=== PATIENT | female | born 1945 | race Native Hawaiian/Other Pacific Islander ===

== ENCOUNTER 2017-02-17 08:30 | Day surgery (SDC) | payer MEDICAID ==
[2017-02-17 08:56] VITALS: RESP 18; TEMP 97.7; O2SAT 97
--- NOTE | 2017-02-17 09:58 | CP.SDSHP ---
Same Day Surgery H & P - History Proposed Procedure: Thyroid FNA Pre-Op Diagnosis: Right thyroid nodule - Allergies Allergies: Allergies No Known Allergies Allergy (Unverified 08/06/13 10:52) - Physical Exam Vital Signs: Vital Signs 02/17/17 08:47 Temperature 97.7 F Pulse Rate 67 Respiratory 18 Rate Blood Pressure 120/69 O2 Sat by Pulse 97 Oximetry Mental Status: Alert & Oriented x3 Heart: WNL Lungs: WNL GI: WNL - {Optional Preform as Required} Abdomen: WNL - Impression Pt. Evaluated Today:Candidate for Anesthesia & Procedure: Yes - Date & Time Date: 02/17/17 Time: 09:45 Short Stay Discharge - Short Stay Discharge Admitting Diagnosis/Reason for Visit: THYROID NODULE Disposition: HOME/ ROUTINE
--- NOTE | 2017-02-17 10:00 | PCM.SURG1 ---
Surgeon's Initial Post Op Note - Surgeon's Notes Surgeon: Meg Motor Power Connector: None Type of Anesthesia: Local Pre-Operative Diagnosis: Right thyroid nodule Operative Findings: Right thyroid nodule Post-Operative Diagnosis: Right thyroid nodule Operation Performed: Right thyroid nodule FNA Specimen/Specimens Removed: FNA samples Estimated Blood Loss: EBL {In ML}: 1 Blood Products Given: N/A Drains Used: No Drains Post-Op Condition: Good Date of Surgery/Procedure: 02/17/17 Time of Surgery/Procedure: 09:55
[2017-02-17 13:23] VITALS: BP 122/71; PULSE 69
--- NOTE | 2017-02-18 17:24 | US ---
PROCEDURE: Ultrasound-guided right thyroid lobe fine needle aspiration biopsy. Clinical Indication: Right lobe thyroid nodule. Evaluate for malignancy. COMPARISON: Comparison is made to prior ultrasound of the thyroid gland performed at an outside institution. PROCEDURE: The relative risks and indications for the procedure were explained to the patient and consent obtained. The patient was placed supine on the stretcher with the neck extended and preliminary sonography of the thyroid performed. This reveal a mildly heterogeneous nodule mid/medial aspect of the right thyroid lobe. Surrounding calcifications noted. The neck was prepped and draped in the usual sterile fashion. Three passes with a 25-gauge needle were performed under ultrasound guidance for fine needle aspiration of the heterogeneous nodule in the right thyroid lobe. The slides were reviewed by pathology and deemed adequate. The patient tolerated the procedure well. IMPRESSION: Ultrasound-guided fine needle aspiration biopsy of right thyroid lobe nodule as described above.
== END 2017-02-17 10:50 | disposition home or self-care (01) ==
LOC: C.SPRAD 08:30
PROVIDERS: ATTEND Radiology Vascular & Interventional Radiology
DX: E04.2 Nontoxic multinodular goiter (principal)

== ENCOUNTER 2017-04-11 09:48 | Day surgery (SDC) | payer MEDICAID ==
[2017-04-07 07:31] VITALS: BMI 23.0
[2017-04-11 10:44] VITALS: O2SAT 97
--- NOTE | 2017-04-11 11:55 | CP.SDSHP ---
Same Day Surgery H & P - History Proposed Procedure: US guided FNA of right thyroid nodule Pre-Op Diagnosis: US guided FNA of right thyroid nodule - Allergies Allergies: Allergies No Known Allergies Allergy (Unverified 08/06/13 10:52) - Physical Exam Vital Signs: Vital Signs 04/11/17 10:09 Temperature 97.5 F L Pulse Rate 63 Respiratory 20 Rate Blood Pressure 138/81 O2 Sat by Pulse 97 Oximetry - Impression Impression: Pt with a calcified right thyroid nodule referred for FNA. Pt. Evaluated Today:Candidate for Anesthesia & Procedure: No Short Stay Discharge - Short Stay Discharge Admitting Diagnosis/Reason for Visit: NONTOXIC SINGLE THYROID NODULE Disposition: HOME/ ROUTINE
--- NOTE | 2017-04-11 11:57 | PCM.SURG1 ---
Surgeon's Initial Post Op Note - Surgeon's Notes Surgeon: Tad Telles MD Cable Technician: NONE Type of Anesthesia: Local Pre-Operative Diagnosis: Right thyroid nodule Operative Findings: US showed a calcified right thyroid 2 cm nodule Post-Operative Diagnosis: Right thyroid nodule Operation Performed: US guided FNA. It was difficult to penetrate the nodule with a 25 g needle because of wall peripheral coarse calcification. Specimen/Specimens Removed: 25 g FNA Estimated Blood Loss: EBL {In ML}: 1 Blood Products Given: N/A Drains Used: No Drains Post-Op Condition: Good Date of Surgery/Procedure: 04/11/17 Time of Surgery/Procedure: 11:50
[2017-04-11 12:36] VITALS: BP 144/64; PULSE 65; RESP 18; TEMP 97.6
--- NOTE | 2017-04-11 13:22 | US ---
PROCEDURE: Date of Procedure: 04/11/2017 PROCEDURE: 1. Ultrasound guided FNA of right thyroid nodule, CPT 35074 2. Ultrasound guidance for FNA, 28957 Medications: 3cc 1% Lidocaine HISTORY: Enlarged right thyroid nodule. TECHNIQUE: Following informed consent and procedure time-out, a limited ultrasound patient's neck confirmed the presence of a 2.3 cm x 1.9 cm complex right thyroid nodule which is predominantly solid and has peripheral calcifications. After the patient's neck was prepped and draped in the usual sterile fashion, the skin was anesthetized with 1% lidocaine. Ultrasound-guided fine needle aspiration was then performed of the dominant right thyroid nodule. A total of 4 passes were made into the nodule with 25 gauge needle under ultrasound guidance. The FNA specimen was sent for routine pathology. It was difficult advancing needle into the calcified nodule. Post biopsy ultrasound showed no hematoma. IMPRESSION: Ultrasound-guided FNA of the calcified right thyroid nodule. There was difficulty advancing the needle into the calcified nodule.
== END 2017-04-11 12:40 | disposition home or self-care (01) ==
LOC: C.SPRAD 09:48
PROVIDERS: ATTEND Radiology Vascular & Interventional Radiology
DX: E04.1 Nontoxic single thyroid nodule (principal)